=== PATIENT | male | born 1945 | race Caucasian/White ===

== ENCOUNTER → 2018-01-29 10:46 | Outpatient (CLI) | payer MEDICARE, OTHER, SELFPAY ==
--- NOTE | 2018-01-29 | DI.US.S_ITS ---
PROCEDURE: US CAROTID DOPPLER BI INDICATIONS: TIA TECHNIQUE: Color and pulse Doppler interrogation was performed of both carotid systems, with image documentation and velocity measurements. COMPARISON: None. FINDINGS: Stenosis calculations are based on SRU (Society of Radiologists in Ultrasound) criteria. Right side: Brachial blood pressure: 121/72 mm Hg. Common carotid artery peak systolic velocity: 104 cm/sec. Internal carotid artery peak systolic velocity: 74 cm/sec. Internal carotid artery end diastolic velocity: 22 cm/sec. External carotid artery peak systolic velocity: 116 cm/sec. ICA/CCA peak systolic ratio: 0.7 Howard scale imaging description: Normal appearance. Percent internal carotid artery stenosis: No stenosis.. Vertebral artery: Flow direction is antegrade. Left side: Brachial blood pressure: 125/73 mm Hg. Common carotid artery peak systolic velocity: 94 cm/sec. Internal carotid artery peak systolic velocity: 90 cm/sec. Internal carotid artery end diastolic velocity: 27 cm/sec. External carotid artery peak systolic velocity: 70 cm/sec. ICA/CCA peak systolic ratio: 1.0. Howard scale imaging description: Normal appearance. Percent internal carotid artery stenosis: No stenosis.. Vertebral artery: Flow direction is antegrade. IMPRESSION: No carotid stenosis. Dictated by: Chad Hanna [facility] Interpreted: Damaso Sanchez MD on 01/29/2018 at 12:51 Approved by: Damaso Sanchez M.D. on 01/29/2018 at 15:30
== END ==
PROVIDERS: Family Provider Family Medicine; PCP Family Medicine; Visit Provider Family Medicine
DX: G45.9 Transient cerebral ischemic attack, unspecified (principal)
CPT/HCPCS: 93880

== ENCOUNTER → 2020-11-26 09:05 | Outpatient (CLI) | payer MEDICARE, OTHER, SELFPAY ==
[2020-11-26 19:43] LABS: Alanine Aminotransferase 20 IU/L (<50); Albumin 3.9 g/dL (3.5-5.0); Albumin Globulin Ratio 1.8 (1.0-2.8); Alkaline Phosphatase 71 U/L (38-126); Aspartate Aminotransferase 35 IU/L (17-59); BUN Creatinine Ratio 16.7 (6-22); Bilirubin Total 0.9 mg/dL (0.2-1.3); Blood Urea Nitrogen 14 mg/dL (9-20); Calcium 9.2 mg/dL (8.4-10.2); Carbon Dioxide 29 mmol/L (22-32); Chloride 103 mmol/L (98-107); Cholesterol 178 mg/dL (140-199); Estimated Glomerular Filt Rate > 60.0 mL/min (>60); Globulin 2.2 g/dL (1.7-4.1); Glucose 93 mg/dL (80-110); HDL Cholesterol 63 mg/dL (40-60); HEMOLYSIS 17 (0-50); LDL Cholesterol Calculated 103 mg/dL (<100); Potassium 4.4 mmol/L (3.4-5.1); Sodium 138 mmol/L (137-145); Total Protein 6.1 g/dL (6.3-8.2); Triglycerides 60 mg/dL (35-150)
[2020-11-26 19:55] LABS: Add Manual Diff / Slide Review NO; Basophils Absolute Auto 0 /uL (0-100); Basophils Percent Auto 0.7 % (0-2); Eosinophils Absolute Auto 100 /uL (0-450); Eosinophils Percent Auto 2.2 % (2-4); Hematocrit 46.9 % (41-53); Hemoglobin 15.9 g/dL (13.5-17.5); Lymphocytes Absolute Auto 1300 /uL (1100-4500); Lymphocytes Percent Auto 24.8 % (25-40); Mean Corpuscular HGB Conc 33.9 % (30-36); Mean Corpuscular Hemoglobin 32.4 PG (26-34); Mean Corpuscular Volume 95.5 fL (80-100); Monocytes Absolute Auto 500 /uL (0-900); Monocytes Percent Auto 9.7 % (3-14); Neutrophils Absolute Auto 3200 /uL (1500-7000); Neutrophils Percent Auto 62.6 % (50-75); Platelet Count 181 X10^3/uL (150-400); Red Blood Cell Count 4.91 X10^6/uL (4.5-5.9); Red Cell Distribution Width 12.9 % (11.6-14.8); White Blood Cell Count 5.1 X10^3/uL (4.5-11.0)
== END ==
PROVIDERS: Family Provider Family Medicine; PCP Family Medicine; Visit Provider Family Medicine
DX: G45.3 Amaurosis fugax (principal); G45.9 Transient cerebral ischemic attack, unspecified; I48.91 Unspecified atrial fibrillation; I70.0 Atherosclerosis of aorta
CPT/HCPCS: 80053; 80061; 85025

== ENCOUNTER → 2021-07-04 13:03 | Outpatient (CLI) | payer MEDICARE, OTHER, SELFPAY ==
[2021-07-04 19:39] LABS: Alanine Aminotransferase 20 IU/L (<50); Albumin Globulin Ratio 1.7 (1.0-2.8); Alkaline Phosphatase 56 U/L (38-126); Aspartate Aminotransferase 34 IU/L (17-59); Blood Urea Nitrogen 16 mg/dL (9-20); Calcium 9.4 mg/dL (8.4-10.2); Carbon Dioxide 30 mmol/L (22-32); Chloride 105 mmol/L (98-107); Estimated Glomerular Filt Rate > 60.0 mL/min (>60); Globulin 2.3 g/dL (1.7-4.1); Glucose 89 mg/dL (80-110); HEMOLYSIS < 15 (0-50); Potassium 4.1 mmol/L (3.4-5.1); Sodium 137 mmol/L (137-145); Total Protein 6.3 g/dL (6.3-8.2)
[2021-07-04 20:05] LABS: Prostate Specific Antigen Scrn 1.91 ng/mL (0.1-4.0)
== END ==
PROVIDERS: Family Provider Family Medicine; PCP Family Medicine; Visit Provider Physician Assistant
DX: Z12.5 Encounter for screening for malignant neoplasm of prostate (principal); R25.2 Cramp and spasm
CPT/HCPCS: 80053; G0103

== ENCOUNTER → 2022-09-28 10:21 | Outpatient (CLI) | payer MEDICARE, OTHER, SELFPAY ==
[2022-09-28 20:16] LABS: Add Manual Diff / Slide Review NO; Basophils Absolute Auto 0 /uL (0-100); Basophils Percent Auto 0.7 % (0-2); Eosinophils Absolute Auto 100 /uL (0-450); Eosinophils Percent Auto 1.7 % (2-4); Hematocrit 44.6 % (41-53); Hemoglobin 15.6 g/dL (13.5-17.5); Lymphocytes Absolute Auto 1200 /uL (1100-4500); Lymphocytes Percent Auto 21.8 % (25-40); Mean Corpuscular Hemoglobin 32.8 PG (26-34); Mean Corpuscular Volume 93.9 fL (80-100); Monocytes Absolute Auto 600 /uL (0-900); Monocytes Percent Auto 10.5 % (3-14); Neutrophils Absolute Auto 3600 /uL (1500-7000); Neutrophils Percent Auto 65.3 % (50-75); Platelet Count 200 X10^3/uL (150-400); Red Blood Cell Count 4.75 X10^6/uL (4.5-5.9); Red Cell Distribution Width 12.7 % (11.6-14.8); White Blood Cell Count 5.6 X10^3/uL (4.5-11.0)
[2022-09-28 20:25] LABS: Alanine Aminotransferase 24 IU/L (<50); Albumin 3.9 g/dL (3.5-5.0); Albumin Globulin Ratio 1.7 (1.0-2.8); Alkaline Phosphatase 69 U/L (38-126); Aspartate Aminotransferase 36 IU/L (17-59); BUN Creatinine Ratio 18.5 (6-22); Bilirubin Total 0.8 mg/dL (0.2-1.3); Blood Urea Nitrogen 17 mg/dL (9-20); Calcium 8.8 mg/dL (8.4-10.2); Carbon Dioxide 29 mmol/L (22-32); Chloride 103 mmol/L (98-107); Cholesterol 174 mg/dL (140-199); Estimated Glomerular Filt Rate > 60 mL/min (>60); Globulin 2.3 g/dL (1.7-4.1); Glucose 88 mg/dL (80-110); HDL Cholesterol 67 mg/dL (40-60); HEMOLYSIS < 15 (0-50); LDL Cholesterol Calculated 95 mg/dL (<100); Potassium 4.3 mmol/L (3.4-5.1); Sodium 137 mmol/L (137-145); Total Protein 6.2 g/dL (6.3-8.2); Triglycerides 59 mg/dL (35-150)
[2022-09-28 20:49] LABS: Thyroid Stimulating Hormone 0.434 uIU/mL (0.47-4.68)
== END ==
PROVIDERS: Family Provider Family Medicine; PCP Physician Assistant; Visit Provider Family Medicine
DX: I48.91 Unspecified atrial fibrillation (principal); R25.2 Cramp and spasm; G45.9 Transient cerebral ischemic attack, unspecified; I70.0 Atherosclerosis of aorta
CPT/HCPCS: 80053; 80061; 84443; 85025

== ENCOUNTER → 2023-02-02 08:19 | Outpatient (CLI) | payer MEDICARE, OTHER, SELFPAY | PROVIDERS: Family Provider Family Medicine; PCP Physician Assistant Medical; Visit Provider Physician Assistant Medical | DX: T14.8XXA Other injury of unspecified body region, initial encounter (principal); W50.3XXA Accidental bite by another person, initial encounter; L60.0 Ingrowing nail | CPT/HCPCS: 87070; 87075; 87077; 87186; 87205 ==

== ENCOUNTER 2023-04-23 13:37 | Day surgery (SDC) | payer MEDICARE, OTHER, SELFPAY ==
--- NOTE | 2023-04-23 | PATH_ITS ---
[facility] Accession Number: [id number] No. of containers..02 Tissue . 01 Material submitted: . PART A: stomach - ANTRUM PART B: esophagus - DISTAL ESOPHAGUS . 01 Diagnosis: A. Stomach, Antrum, Biopsy: Antral mucosa with mild chronic gastritis. No evidence of Helicobacter organisms on H/E stain. Negative for intestinal metaplasia. Negative for dysplasia or malignancy. . B. 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 Negative for dysplasia and malignancy. [facility] 05/02/2023 1746 Local . 01 Electronically signed: . Fernanda Kendrick MD, Pathologist NPI- [id number] . 01 Gross description: . Part A: ANTRUM: Received in formalin is 1 fragment(s) of montano, soft tissue measuring 0.3 x 0.3 x 0.3 cm submitted entirely in 1 cassette(s) Part B: DISTAL ESOPHAGUS: Received in formalin are 2 fragment(s) of montano, soft tissue measuring 0.2 x 0.2 x 0.2 cm to 0.3 x 0.3 x 0.2 cm submitted entirely in 1 cassette(s) /MICK 04/24/2023 1909 Local . 01 Pathologist provided ICD-10: K22.70 . 01 CPT . 045510, [id number] Specimen Comment: A courtesy copy of this report has been sent to [phone] Performed at: 01 [facility] [address] [place] [address] [id number] MD Jaylen Giron MD Phone: [phone]
[2023-04-23] MEDS: LACTATED RINGERS 1,000 ML 42 ML IV (13:51)
[2023-04-23 13:59] VITALS: BP 142/85; PULSE 64; RESP 16; TEMP 36.3; O2SAT 95; BMI 23.5
--- NOTE | 2023-04-23 14:45 | PM.HP.1 ---
History of Present Illness History of Present Illness Date Patient Seen: 04/23/23 Time Patient Seen: 14:45 Chief complaint: EGD w/poss bx Narrative: 78-year-old male I recently saw this summer in GI clinic. Is chronic reflux and some intermittent symptoms of dysphagia. Here for EGD. He is off Plavix x5 days. [facility] Medical History Encounter for vitamin deficiency screening Screening for prostate cancer Screening for diabetes mellitus Screening for thyroid disorder Laceration without foreign body of left middle finger without damage to nail, initial encounter Screening for colon cancer Stroke Social History household members: spouse Smoking Status: Former smoker alcohol intake: current Meds Home Medications and Allergies Home Medications Medication Instructions Recorded Confirmed Type clopidogrel 75 mg tablet 75 mg PO DAILY #90 tabs 09/12/22 04/23/23 Rx mupirocin 2 % topical ointment 1 applic topical BID #22 grams 02/02/23 04/23/23 Rx baclofen 5 mg tablet 5 mg PO TID #60 tabs 04/19/23 04/23/23 Rx Allergies Allergy/AdvReac Type Severity Reaction Status Date / Time Penicillins [PENICILLINS] Allergy Intermediate hands Verified 04/23/23 13:55 swelled up Review of Systems Review of Systems ROS: Yes All systems reviewed with the patient and are negative except as otherwise documented Exam Vital Signs (past 8 hours): - 04/23/23 13:59 Temperature 97.4 F L Pulse Rate 64 Respiratory Rate 16 Blood Pressure 142/85 H Pulse Oximetry 95 Oxygen Delivery Method Room Air Oxygen Delivery Method Room Air Const General: cooperative HENMT Head: normal to inspection Eyes General: appearance normal, both eyes and all related structures Neck Neck: normal visual inspection Chest Chest: normal inspection of the chest Resp Effort & Inspection: normal respiratory effort Cardio Rate: regular rate GI Inspection: normal to inspection Skin General: no rashes or lesions noted Neuro General: patient alert and patient awake Extrem General: normal to inspection and no pedal edema Psych Appearance: grossly normal Assessment & Plan Assessment & Plan narrative: 78-year-old male with chronic reflux. He has a sense of early satiety at times intermittent low-grade dysphagia. Barretts screening by way of the EGD is pursued today. We touched on the unlikely possibility that dilatation would be called for and he agreed to proceed.
--- NOTE | 2023-04-23 14:47 | PM.PREOP ---
Pre-operative Note Interval Note History & Physical reviewed/Exam performed by Physician: Yes Changes to H&P: No ASA Class (for procedural sedation): II
--- NOTE | 2023-04-23 15:37 | P.OP.EGD_ITS ---
Operative Date/Time/Diagnoses Date of procedure: 04/23/23 Time of procedure: 15:37 Pre-op diagnosis: GERD and dysphagia Post-op diagnosis: same Procedure & Clinicians Study performed: EGD with biopsies Same procedure as scheduled: Yes Indications: GERD and dysphagia Surgeon: Gustavo Bowen Procedure Notes SCOAP/Timeout: Done Procedure in detail: After the risks and benefits were explained, written and verbal informed consent was obtained. The patient was brought into the procedure room and placed into the left lateral decubitus position. Please see anesthesia note for sedation details. The scope was introduced into the mouth through the bite block and advanced under direct visualization to the 2nd portion of the duodenum. The scope was slowly withdrawn carefully examining the mucosa for any defects or lesions. Retroflexed views were accomplished in the stomach. The stomach was decompressed, the scope was then removed from the patient who tolerated the procedure well. Sedation minutes: 9 Complications: none Impression: 1. Duodenum: There was some mild erythema that was essentially an extension of the gastropathy noticed in the antrum. This was in the bulb only. No ulcers no mass lesions. The 2nd portion of the duodenal appeared normal. 2. Stomach: Mild erythema was noted throughout the antrum. Biopsy was acquired for exclusion of H pylori infection. No ulcers no mass lesions no outlet obstruction. Retroflexed views of the LES disclosed sliding hiatal hernia and a few benign-appearing diminutive polyps in the fundus region. These were left alone. 3. Esophagus: The patient had evidence of LA grade C erosive esophagitis. The GE junction was at approximately 37 cm from the incisors. The diaphragmatic pinchcock was at about 42 cm from the incisors. The features of esophagitis extended up to about 32 cm from the incisors. It looked like there was perhaps C2 M4 Roper's. I took a couple of biopsies from the obvious salmon-colored mucosa in this location for histopathologic analysis. The remainder of the esophagus was fairly unremarkable. No distinct stricture or mass lesion. No nodularity within the Roper's segment. Endoscopic diagnosis 1. 5 cm hiatal hernia 2. LA grade C erosive esophagitis 3. Probable C2 M4 Barretts 4. Gastropathy Post-procedure Plan for aftercare: 1. Await histology. 2. Consider a more potent anti-reflux regimen to reduce distal esophageal acid exposure. Prescription for pantoprazole 40 mg once daily will be offered. 3. Repeat EGD in 8-12 weeks to confirm what is probably going to be Barretts diagnosis and ensure sufficient mucosal healing. 4. Okay to r esume Plavix starting tomorrow. Disposition: PACU
[2023-04-23 15:40] VITALS: BP 102/61; PULSE 64; RESP 17; TEMP 36.2; O2SAT 96
[2023-04-23 15:45] VITALS: BP 111/63; PULSE 63; RESP 16; O2SAT 96
[2023-04-23 15:50] VITALS: BP 117/71; PULSE 63; RESP 15; O2SAT 94
[2023-04-23 15:55] VITALS: BP 130/72; PULSE 60; RESP 17; TEMP 36.7; O2SAT 96
[2023-04-23 16:08] VITALS: BP 127/77; PULSE 60; RESP 16; TEMP 36.7; O2SAT 95
== END 2023-04-23 16:20 | disposition home or self-care (01) ==
PROVIDERS: Family Provider Family Medicine; PCP Physician Assistant Medical; Referring Provider Internal Medicine Gastroenterology; Visit Provider Internal Medicine Gastroenterology
PROC: 0DJ08ZZ Inspection of Upper Intestinal Tract, Via Natural or Artificial Opening Endoscopic (ICD-10-PCS; CPT 43235; principal; 2023-04-23 14:30)
DX: R13.10 Dysphagia, unspecified (principal); K31.9 Disease of stomach and duodenum, unspecified; K44.9 Diaphragmatic hernia without obstruction or gangrene; K21.00 Gastro-esophageal reflux disease with esophagitis, without bleeding; K29.50 Unspecified chronic gastritis without bleeding; K22.70 Barrett's esophagus without dysplasia
CPT/HCPCS: 43239; J2704

== ENCOUNTER → 2023-11-28 08:27 | Outpatient (CLI) | payer MEDICARE, OTHER, SELFPAY ==
[2023-11-28 21:04] LABS: Add Manual Diff / Slide Review NO; Basophils Absolute Auto 0 /uL (0-100); Basophils Percent Auto 0.4 % (0-2); Eosinophils Absolute Auto 200 /uL (0-450); Eosinophils Percent Auto 4.4 % (2-4); Hematocrit 44.9 % (41-53); Hemoglobin 15.5 g/dL (13.5-17.5); Lymphocytes Absolute Auto 1300 /uL (1100-4500); Lymphocytes Percent Auto 23.4 % (25-40); Mean Corpuscular HGB Conc 34.6 % (30-36); Mean Corpuscular Hemoglobin 32.5 PG (26-34); Mean Corpuscular Volume 93.8 fL (80-100); Monocytes Absolute Auto 700 /uL (0-900); Monocytes Percent Auto 12.5 % (3-14); Neutrophils Absolute Auto 3300 /uL (1500-7000); Neutrophils Percent Auto 59.3 % (50-75); Platelet Count 199 X10^3/uL (150-400); Red Blood Cell Count 4.79 X10^6/uL (4.5-5.9); Red Cell Distribution Width 12.9 % (11.6-14.8); White Blood Cell Count 5.6 X10^3/uL (4.5-11.0)
[2023-11-28 21:21] LABS: Alanine Aminotransferase 17 IU/L (<50); Albumin 4.2 g/dL (3.5-5.0); Albumin Globulin Ratio 1.8 (1.0-2.8); Aspartate Aminotransferase 34 IU/L (17-59); Calcium 9.2 mg/dL (8.4-10.2); Carbon Dioxide 28 mmol/L (22-32); Chloride 107 mmol/L (98-107); Cholesterol 184 mg/dL (140-199); Globulin 2.3 g/dL (1.7-4.1); Glucose 93 mg/dL (80-110); HDL Cholesterol 62 mg/dL (40-60); LDL Cholesterol Calculated 107 mg/dL (<100); Potassium 4.1 mmol/L (3.4-5.1); Sodium 138 mmol/L (137-145); Total Protein 6.5 g/dL (6.3-8.2); Triglycerides 76 mg/dL (35-150)
[2023-11-28 21:36] LABS: Alkaline Phosphatase 67 U/L (38-126); BUN Creatinine Ratio 18.6 (6-22); Bilirubin Total 1.1 mg/dL (0.2-1.3); Blood Urea Nitrogen 16 mg/dL (9-20); Estimated Glomerular Filt Rate > 60 mL/min (>60); HEMOLYSIS 19 (0-50)
[2023-11-28 21:45] LABS: TSH w/ Reflex to FT4 0.75 uIU/mL (0.47-4.68)
== END ==
PROVIDERS: Family Provider Family Medicine; PCP Physician Assistant Medical; Visit Provider Family Medicine
DX: I10 Essential (primary) hypertension (principal)
CPT/HCPCS: 80053; 80061; 84443; 85025

== ENCOUNTER 2024-01-16 14:34 | Emergency (ER) | payer MEDICARE, OTHER, SELFPAY ==
[2024-01-16 14:47] VITALS: BP 162/77; PULSE 79; RESP 17; TEMP 37.6; O2SAT 95; BMI 22.6
[2024-01-16 15:19] LABS: Strep Grp A by PCR Rapid Negative (Negative)
--- NOTE | 2024-01-16 15:25 | DI.RAD.S_ITS ---
PROCEDURE: XR CHEST 2V INDICATIONS: URI TECHNIQUE: 2 views of the chest were acquired. COMPARISON: None. FINDINGS: Surgical changes and devices: None. Lungs and pleura: Lungs are clear. No pleural effusions or pneumothorax. Mediastinum: Mediastinal contours are normal. Heart size is normal. Bones and chest wall: No suspicious bony abnormalities. Soft tissues appear unremarkable. IMPRESSION: No acute cardiopulmonary abnormality is seen. Dictated by: Patric Vann M.D. on 01/16/2024 at 16:21 Approved by: Patric Vann M.D. on 01/16/2024 at 16:21
--- NOTE | 2024-01-16 16:08 | ED.URI ---
HPI - URI/Sore Throat <Gris Peguero PA-C - Last Filed: 01/16/24 18:43> General Chief Complaint: Upper Respiratory Symptoms Stated Complaint: coughing, sore throat, sent by [employer] [place] Time Seen by Provider: 01/16/24 16:08 Source: patient Mode of arrival: Family Vehicle History of Present Illness HPI Narrative: 78-year-old male presents today with chief complaint of soreness of throat and some green mucus that he has been coughing up. He is denying any difficulty breathing, no fever at home that he is aware of but it is painful to swallow and his voice is somewhat raspy since Sunday. He also states trying to drink some orange juice today and ?choked and spit it back up. He has been able to take sips of clear liquids such as water. He also took his Plavix today as well. To the best of his knowledge he is vaccinated for all respiratory illnesses. No other members of his household have similar symptoms. No recent travel, no insect bites. He denies any rash, any history of airspace disease, no chest pain, as main complaint is painful swallowing with phlegm. He reports good control of his GERD with the pantoprazole. His history is significant for hypertension, GERD he has a follow-up EGD on February 04, 2024, atrial fibrillation previous TIA thus the Plavix and currently taking pantoprazole. He is allergic to penicillin. All other systems are reviewed and are negative. Related Data Home Medications Medication Instructions Recorded Confirmed pantoprazole 40 mg tablet,delayed 40 mg PO DAILY 11/26/23 02/04/24 release Previous Rx's Medication Instructions Recorded clopidogrel 75 mg tablet 75 mg PO DAILY #90 tabs 11/08/23 clindamycin HCl 300 mg capsule 300 mg PO Q8H #30 caps 01/16/24 Allergies Allergy/AdvReac Type Severity Reaction Status Date / Time Penicillins [PENICILLINS] Allergy Intermediate hands Verified 02/04/24 10:38 swelled up Review of Systems <Gris Peguero PA-C - Last Filed: 01/16/24 18:43> Review of Systems Narrative: All other systems reviewed and are negative. 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 Leg cramping Abnormal echocardiogram Atrial fibrillation Arteriosclerosis of thoracic aorta Amaurosis fugax of right eye Encounter for vitamin deficiency screening Screening for diabetes mellitus Screening for thyroid disorder Laceration without foreign body of left middle finger without damage to nail, initial encounter Screening for colon cancer Stroke Social History household members: spouse Smoking Status: Former smoker alcohol intake: current Smoking Status: Former smoker tobacco type: cigarettes alcohol intake frequency: holidays/special occasions only Substance Use Type: marijuana Exam <Gris Peguero PA-C - Last Filed: 01/16/24 18:43> Initial Vital Signs Initial Vital Signs: Vital Signs Temperature 99.7 F H 01/16/24 14:47 Pulse Rate 79 01/16/24 14:47 Respiratory Rate 17 01/16/24 14:47 Blood Pressure 162/77 H 01/16/24 14:47 Pulse Oximetry 95 01/16/24 14:47 Oxygen Delivery Method Room Air 01/16/24 14:47 Reviewed and are normal except for temperature which was rechecked at 100.1 but did respond to acetaminophen 650 mg. Slightly elevated systolic blood pressure reading today pulse oximetry on room air is 95%. Const Other: Smiling, seated, raspy sounding but no hot potato voice work of breathing is normal, no obvious distress, his legs are crossed. HENCA Head: normal to inspection, normocephalic and atraumatic Ears: hearing grossly normal bilaterally, external ears normal, TM's normal bilaterally, EAC's normal and mastoids normal Nose: external nose normal, nares normal and nasal mucous membranes and turbinates normal Face and sinus: normal facial exam, sinuses nontender and face symmetric Mouth: oral mucosae normal, lip normal, tongue normal, oropharynx normal, No drooling, No malodorous breath, No muffled voice and No thickened frenulum Teeth and gingiva: dentition normal and gingiva normal Throat: posterior oropharynx normal, tonsils normal, uvula midline and postnasal drainage HENMT Other: Tonsils are hardly visible bilaterally. There is no exudate, oral tissues are pink and moist. No lesions. No vesicles. Eyes Conjunctivae: conjunctivae normal Sclera: sclerae normal Neck Neck: normal visual inspection, full ROM, no meningeal signs, trachea midline, supple, No anterior neck swelling and No lymphadenopathy Lymphatic: No lymphadenopathy Other: Nontender examination of the lymph nodes, no focal bony midline tenderness in the posterior. No supra or infraclavicular nodes. Chest Other: Normal chest rise and fall, equal expansion. Resp Effort & Inspection: able to speak in complete sentences, no audible wheezes, no cough, not labored, no nasal flaring and symmetric chest movement Auscultation: clear to auscultation bilaterally, no crackles, lung sounds not diminished, no rales, no rhonchi and no wheezes Other: Phlegm in his throat which is distorting his voice it is slightly raspy, he is clearing his throat but his lungs are clear. Cardio Rate: regular rate Rhythm: regular rhythm Other: He states his atrial fibrillation was some time ago and it resolved without recurrence. GI Inspection: normal to inspection and non-distended Palpation: soft and no hepatosplenomegaly Back/Spine/Pelvis Other: No rash, warm to the touch. Skin General: no rashes or lesions noted <iTffanie Vázquez MD - Last Filed: 02/07/24 03:53> Initial Vital Signs Initial Vital Signs: Vital Signs Temperature 99.7 F H 01/16/24 14:47 Pulse Rate 79 01/16/24 14:47 Respiratory Rate 17 01/16/24 14:47 Blood Pressure 162/77 H 01/16/24 14:47 Pulse Oximetry 95 01/16/24 14:47 Oxygen Delivery Method Room Air 01/16/24 14:47 Course <Gris Peguero PA-C - Last Filed: 01/16/24 18:43> Course Course Narrative: Discussed the case with the attending Dr. Vázquez recommended IV steroids and antimicrobial to cover bacterial pharyngitis while his culture is pending. Was given Decadron 10 mg intravenously reassessed and he has had some significant improvement. He states he is able to swallow much better and has less phlegm. He did receive his 1st dose of clindamycin 300 mg by mouth as he is allergic to penicillin and it is after hours. This was well tolerated. He is able to drink liquids without difficulty now and his voice has actually improved. Orders Ordered: Discontinued Medications Acetaminophen (Acetaminophen 325 Mg Tablet) 650 mg PO NOW ONE Stop: 01/16/24 16:39 Last Admin: 01/16/24 16:56 Dose: 650 mg Documented By: KRYSTAL Clindamycin HCl (Clindamycin 150 Mg Capsule) 300 mg PO NOW ONE Stop: 01/16/24 17:25 Last Admin: 01/16/24 17:36 Dose: 300 mg Documented By: MARCELO Dexamethasone (Dexamethasone 10 Mg/Ml Vial) 10 mg IV NOW ONE Stop: 01/16/24 17:25 Last Admin: 01/16/24 17:36 Dose: 10 mg Documented By: MARCELO Vital Signs Vital signs: Vital Signs - 8 hr 01/16/24 14:47 01/16/24 16:27 01/16/24 16:56 Temperature 99.7 F H 101.1 F H 101.1 F H Pulse Rate 79 82 Respiratory Rate 17 20 Blood Pressure 162/77 H 164/75 H Pulse Oximetry 95 92 Oxygen Delivery Method Room Air Room Air Repeat oral temperature is 100.1?, he is dosed with acetaminophen 650 mg p.o.. <Tiffanie Vázquez MD - Last Filed: 02/07/24 03:53> Orders Ordered: Discontinued Medications Acetaminophen (Acetaminophen 325 Mg Tablet) 650 mg PO NOW ONE Stop: 01/16/24 16:39 Last Admin: 01/16/24 16:56 Dose: 650 mg Documented By: KRYSTAL Clindamycin HCl (Clindamycin 150 Mg Capsule) 300 mg PO NOW ONE Stop: 01/16/24 17:25 Last Admin: 01/16/24 17:36 Dose: 300 mg Documented By: MARCELO Dexamethasone (Dexamethasone 10 Mg/Ml Vial) 10 mg IV NOW ONE Stop: 01/16/24 17:25 Last Admin: 01/16/24 17:36 Dose: 10 mg Documented By: MARCELO Vital Signs Vital signs: Vital Signs - 8 hr 01/16/24 14:47 01/16/24 16:27 01/16/24 16:56 Temperature 99.7 F H 101.1 F H 101.1 F H Pulse Rate 79 82 Respiratory Rate 17 20 Blood Pressure 162/77 H 164/75 H Pulse Oximetry 95 92 Oxygen Delivery Method Room Air Room Air MDM - URI/Sore Throat <Gris Peguero PA-C - Last Filed: 01/16/24 18:43> Lab Data Lab results narrative: Acute respiratory panel is negative. Rapid strep screen was negative his backup throat culture is pending. CBC and chemistry are within normal limits slight white count of 11.7. Clayton screen is negative. 01/16/24 16:41 01/16/24 16:41 Labs: Lab Results 01/16/24 01/16/24 Range/Units 14:55 16:41 WBC 11.7 H (4.5-11.0) X10^3/uL RBC 4.80 (4.5-5.9) X10^6/uL Hgb 15.4 (13.5-17.5) g/dL Hct 45.4 (41-53) % MCV 94.4 (80-100) fL MCH 32.1 (26-34) PG MCHC 34.0 (30-36) % RDW 12.8 (11.6-14.8) % Plt Count 194 (150-400) X10^3/uL Neut % (Auto) 81.1 H (50-75) % Lymph % (Auto) 6.1 L (25-40) % Clayton % (Auto) 11.8 (3-14) % Eos % (Auto) 0.3 L (2-4) % Baso % (Auto) 0.7 (0-2) % Neut # (Auto) 9500 H (8970-1177) /uL Lymph # (Auto) 700 L (2361-4756) /uL Clayton # (Auto) 1400 H (0-900) /uL Eos # (Auto) 0 (0-450) /uL Baso # (Auto) 100 (0-100) /uL Sodium 136 L (137-145) mmol/L Potassium 3.9 (3.4-5.1) mmol/L Chloride 103 (98-107) mmol/L Carbon Dioxide 23 (22-32) mmol/L BUN 15 (9-20) mg/dL Creatinine 0.87 (0.66-1.25) mg/dL Estimated GFR > 60 (>60) mL/min BUN/Creatinine Ratio 17.2 (6-22) Glucose 103 (80-110) mg/dL Calcium 9.1 (8.4-10.2) mg/dL Total Bilirubin 1.6 H (0.2-1.3) mg/dL AST 32 (17-59) IU/L ALT 20 (<50) IU/L Alkaline Phosphatase 75 (38-126) U/L Total Protein 7.2 (6.3-8.2) g/dL Albumin 4.2 (3.5-5.0) g/dL Globulin 3.0 (1.7-4.1) g/dL Albumin/Globulin Ratio 1.4 (1.0-2.8) Chlamy pneumoniae PCR Not detected (Not Detect) Adenovirus (PCR) Not detected (Not Detect) B.parapertussis DNA PCR Not detected (Not Detecte) Coronavirus OC43 (PCR) Not detected (Not Detect) Coronavirus HKU1 (PCR) Not detected (Not Detect) Coronavirus 229E (PCR) Not detected (Not Detect) SARS-CoV-2 (PCR) Not detected (Not Detecte) Coronavirus NL63 (PCR) Not detected (Not Detect) Monoscreen Negative (Negative) Human Metapneumovir PCR Not detected (Not Detect) Influenza Type A (PCR) Not detected (Not Detect) Influenza Type B (PCR) Not detected (Not Detect) M. pneumoniae (PCR) Not detected (Not Detect) Parainfluenza 1 (PCR) Not detected (Not Detect) Parainfluenza 2 (PCR) Not detected (Not Detect) Parainfluenza 3 (PCR) Not detected (Not Detect) Parainfluenza 4 (PCR) Not detected (Not Detect) RSV (PCR) Not detected (Not Detect) Entero/Rhino (PCR) Not detected (Not Detect) Group A Strep (PCR) Negative (Negative) Imaging Data Chest x-ray: My Impression: Defer to radiologist's interpretation. Radiologist's Impression: PROCEDURE: XR CHEST 2V INDICATIONS: URI TECHNIQUE: 2 views of the chest were acquired. COMPARISON: None. FINDINGS: Surgical changes and devices: None. Lungs and pleura: Lungs are clear. No pleural effusions or pneumothorax. Mediastinum: Mediastinal contours are normal. Heart size is normal. Bones and chest wall: No suspicious bony abnormalities. Soft tissues appear unremarkable. IMPRESSION: No acute cardiopulmonary abnormality is seen. Dictated by: Patric Vann M.D. on 01/16/2024 at 16:21 Approved by: Patric Vann M.D. on 01/16/2024 at 16:21 [facility] Narrative Medical decision making narrative: My main concern is bacterial pharyngitis, his viral panel was negative. He has had significant improvement with the IV Decadron his throat culture is pending. Differential includes laryngitis, low likelihood of pharyngeal cellulitis there are no clinical findings on exam to suggest this, he does have a history of GERD that is certainly can contribute to some of his symptoms, his voice has improved with the steroids. <Tiffanie Vázquez MD - Last Filed: 02/07/24 03:53> Lab Data Labs: Lab Results 01/16/24 01/16/24 Range/Units 14:55 16:41 WBC 11.7 H (4.5-11.0) X10^3/uL RBC 4.80 (4.5-5.9) X10^6/uL Hgb 15.4 (13.5-17.5) g/dL Hct 45.4 (41-53) % MCV 94.4 (80-100) fL MCH 32.1 (26-34) PG MCHC 34.0 (30-36) % RDW 12.8 (11.6-14.8) % Plt Count 194 (150-400) X10^3/uL Neut % (Auto) 81.1 H (50-75) % Lymph % (Auto) 6.1 L (25-40) % Clayton % (Auto) 11.8 (3-14) % Eos % (Auto) 0.3 L (2-4) % Baso % (Auto) 0.7 (0-2) % Neut # (Auto) 9500 H (5879-6050) /uL Lymph # (Auto) 700 L (2427-1257) /uL Clayton # (Auto) 1400 H (0-900) /uL Eos # (Auto) 0 (0-450) /uL Baso # (Auto) 100 (0-100) /uL Sodium 136 L (137-145) mmol/L Potassium 3.9 (3.4-5.1) mmol/L Chloride 103 (98-107) mmol/L Carbon Dioxide 23 (22-32) mmol/L BUN 15 (9-20) mg/dL Creatinine 0.87 (0.66-1.25) mg/dL Estimated GFR > 60 (>60) mL/min BUN/Creatinine Ratio 17.2 (6-22) Glucose 103 (80-110) mg/dL Calcium 9.1 (8.4-10.2) mg/dL Total Bilirubin 1.6 H (0.2-1.3) mg/dL AST 32 (17-59) IU/L ALT 20 (<50) IU/L Alkaline Phosphatase 75 (38-126) U/L Total Protein 7.2 (6.3-8.2) g/dL Albumin 4.2 (3.5-5.0) g/dL Globulin 3.0 (1.7-4.1) g/dL Albumin/Globulin Ratio 1.4 (1.0-2.8) Chlamy pneumoniae PCR Not detected (Not Detect) Adenovirus (PCR) Not detected (Not Detect) B.parapertussis DNA PCR Not detected (Not Detecte) Coronavirus OC43 (PCR) Not detected (Not Detect) Coronavirus HKU1 (PCR) Not detected (Not Detect) Coronavirus 229E (PCR) Not detected (Not Detect) SARS-CoV-2 (PCR) Not detected (Not Detecte) Coronavirus NL63 (PCR) Not detected (Not Detect) Monoscreen Negative (Negative) Human Metapneumovir PCR Not detected (Not Detect) Influenza Type A (PCR) Not detected (Not Detect) Influenza Type B (PCR) Not detected (Not Detect) M. pneumoniae (PCR) Not detected (Not Detect) Parainfluenza 1 (PCR) Not detected (Not Detect) Parainfluenza 2 (PCR) Not detected (Not Detect) Parainfluenza 3 (PCR) Not detected (Not Detect) Parainfluenza 4 (PCR) Not detected (Not Detect) RSV (PCR) Not detected (Not Detect) Entero/Rhino (PCR) Not detected (Not Detect) Group A Strep (PCR) Negative (Negative) Discharge Plan Departure Patient Disposition: Home Clinical Impression: Acute bacterial pharyngitis Instructions: DI for Pharyngitis/Tonsillopharyngitis -- Adult Activity Restrictions/Additional Instructions: Please keep her activity light, try to push fluids, consider frozen popsicles or frozen Gatorade avoid heavy dairy or cream as this can thickened your phlegm, try steam therapy or a hot tea towel with steam or steamy shower, you have been given a dose of steroids tonight you will start prednisone steroids tomorrow by mouth along with the rest of your antibiotic course. You had your 1st dose of clindamycin tonight. Please seek medical attention immediately if you have any worsening symptoms, have difficulty swallowing or inability to swallow, any vomiting, any fever that does not respond to Tylenol, please do follow up with your primary care provider as well, your throat culture is pending and our lab and will take another 48 hours or so to finalize but you are being treated for presumed bacterial pharyngitis. Thank you again for your patients and coming in [facility] I hope you have a safe [place] ride home. To [facility]: If able, please accommodate for priority boarding. We do not provide/carry passes. Thank you in advance for your help and consideration. Prescriptions: New clindamycin HCl 300 mg capsule 300 mg PO Q8H Qty: 30 0RF No Action clopidogrel 75 mg tablet 75 mg PO DAILY Qty: 90 0RF pantoprazole 40 mg tablet,delayed release (DR/EC) 40 mg PO DAILY Referrals: Fernanda Del Cid PA-C [Primary Care Provider] - Stand Alone Forms: Patient Portal/API ED Sign-out <Tiffanie Vázquez MD - Last Filed: 02/07/24 03:53> Cosign ED Attending Heatherature Attestation: I was immediately available in the department for consultation throughout this patient's visit. Tiffanie Vázquez MD
[2024-01-16 16:23] LABS: Adenovirus Not Detected (Not Detect); B. parapertussis Not Detected (Not Detecte); Bordetella pertussis Not Detected (Not Detect); Chlamydophila pneumoniae Not Detected (Not Detect); Coronavirus 229E Not Detected (Not Detect); Coronavirus HKU1 Not Detected (Not Detect); Coronavirus NL 63 Not Detected (Not Detect); Coronavirus OC43 Not Detected (Not Detect); Human Metapneumovirus Not Detected (Not Detect); Human Rhinovirus/Enterovirus Not Detected (Not Detect); Influenza A Not Detected (Not Detect); Influenza B Not Detected (Not Detect); Mycoplasma pneumoniae Not Detected (Not Detect); Parainfluenza Virus 1 Not Detected (Not Detect); Parainfluenza Virus 2 Not Detected (Not Detect); Parainfluenza Virus 3 Not Detected (Not Detect); Parainfluenza Virus 4 Not Detected (Not Detect); Respiratory Syncytial Virus Not Detected (Not Detect); SARS- CoV-2 Not Detected (Not Detecte)
[2024-01-16 16:27] VITALS: BP 164/75; PULSE 82; RESP 20; TEMP 38.4; O2SAT 92
[2024-01-16 16:49] LABS: Add Manual Diff / Slide Review NO; Basophils Absolute Auto 100 /uL (0-100); Basophils Percent Auto 0.7 % (0-2); Eosinophils Absolute Auto 0 /uL (0-450); Eosinophils Percent Auto 0.3 % (2-4); Hematocrit 45.4 % (41-53); Hemoglobin 15.4 g/dL (13.5-17.5); Lymphocytes Absolute Auto 700 /uL (1100-4500); Lymphocytes Percent Auto 6.1 % (25-40); Mean Corpuscular Hemoglobin 32.1 PG (26-34); Mean Corpuscular Volume 94.4 fL (80-100); Monocytes Absolute Auto 1400 /uL (0-900); Monocytes Percent Auto 11.8 % (3-14); Neutrophils Absolute Auto 9500 /uL (1500-7000); Neutrophils Percent Auto 81.1 % (50-75); Platelet Count 194 X10^3/uL (150-400); Red Cell Distribution Width 12.8 % (11.6-14.8); White Blood Cell Count 11.7 X10^3/uL (4.5-11.0)
[2024-01-16 16:56] VITALS: TEMP 38.4
[2024-01-16] MEDS: ACETAMINOPHEN 325 MG TABLET 650 MG PO (16:56)
[2024-01-16 17:02] LABS: Alanine Aminotransferase 20 IU/L (<50); Albumin 4.2 g/dL (3.5-5.0); Albumin Globulin Ratio 1.4 (1.0-2.8); Alkaline Phosphatase 75 U/L (38-126); Aspartate Aminotransferase 32 IU/L (17-59); BUN Creatinine Ratio 17.2 (6-22); Bilirubin Total 1.6 mg/dL (0.2-1.3); Blood Urea Nitrogen 15 mg/dL (9-20); Calcium 9.1 mg/dL (8.4-10.2); Carbon Dioxide 23 mmol/L (22-32); Chloride 103 mmol/L (98-107); Estimated Glomerular Filt Rate > 60 mL/min (>60); Glucose 103 mg/dL (80-110); HEMOLYSIS < 15 (0-50); Potassium 3.9 mmol/L (3.4-5.1); Sodium 136 mmol/L (137-145); Total Protein 7.2 g/dL (6.3-8.2)
[2024-01-16 17:13] LABS: Monotest Negative (Negative)
[2024-01-16] MEDS: DEXAMETHASONE 10 MG/ML VIAL IV (17:36)
[2024-01-16] MEDS: CLINDAMYCIN 150 MG CAPSULE 300 MG PO (17:36)
[2024-01-16 18:35] VITALS: BP 138/69; PULSE 83; RESP 19; TEMP 36.9; O2SAT 94
[2024-01-16 18:42] VITALS: TEMP 36.9
--- NOTE | 2024-01-16 18:49 | PC.NURSE ---
IV removed; no complications
== END 2024-01-16 18:49 | disposition home or self-care (01) ==
PROVIDERS: Emergency Medicine; Emergency Provider Physician Assistant Medical; Family Provider Family Medicine; PCP Physician Assistant Medical
DX: J02.8 Acute pharyngitis due to other specified organisms (principal); Z11.52 Encounter for screening for COVID-19
CPT/HCPCS: 71046; 80053; 85025; 86318; 87081; 87147; 87633; 87651; 96374; 99284; J1100

== ENCOUNTER 2024-02-04 10:21 | Day surgery (SDC) | payer MEDICARE, OTHER, SELFPAY ==
--- NOTE | 2024-02-04 | PATH_ITS ---
[facility] Accession Number: [id number] No. of containers..02 Tissue . 01 Material submitted: . PART A: esophagus - DISTAL ESOPHAGUS PART B: gastrointestinal site - GASTRIC POLYPS . 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 No dysplasia identified. . Part B: GASTRIC POLYPS: Fundic gland polyps. No Helicobacter organisms identified on H/E stain. No intestinal metaplasia, dysplasia, or malignancy identified. [facility] 02/06/2024 1705 Local . 01 Electronically signed: . Jaylen Giron MD, Pathologist NPI- [id number] . 01 Gross description: . Part A: DISTAL ESOPHAGUS: Received in formalin are 3 fragment(s) of montano, soft tissue measuring 0.1 x 0.1 x 0.1 cm to 0.3 x 0.2 x 0.2 cm submitted entirely in 1 cassette(s) . Part B: GASTRIC POLYPS: Received in formalin are 2 fragment(s) of montano, soft tissue measuring 0.1 x 0.1 x 0.1 cm to 0.2 x 0.2 x 0.2 cm submitted entirely in 1 cassette(s) /MICK 02/06/2024 1705 Local . 01 Pathologist provided ICD-10: K22.70, K31.7 . 01 CPT . 516916, 475843 Specimen Comment: A courtesy copy of this report has been sent to [phone] Performed at: [address] [address], [place], [place] [id number] MD Jaylen Giron MD Phone: [phone]
[2024-02-04 10:40] VITALS: BP 145/78; PULSE 62; RESP 16; TEMP 36.4; O2SAT 95
[2024-02-04] MEDS: LACTATED RINGERS 1,000 ML 42 ML IV ×2 (10:54→12:08)
--- NOTE | 2024-02-04 11:08 | PM.HP.1 ---
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 He is office clopidogrel 6 days. He remains on pantoprazole apart from this morning. No additional changes with respect to my office visit note late. 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 Leg cramping Abnormal echocardiogram Atrial fibrillation Arteriosclerosis of thoracic aorta Amaurosis fugax of right eye Encounter for vitamin deficiency screening Screening for diabetes mellitus Screening for thyroid disorder Laceration without foreign body of left middle finger without damage to nail, initial encounter Screening for colon cancer Stroke Social History household members: spouse Smoking Status: Former smoker alcohol intake: current Meds Home Medications and Allergies Home Medications Medication Instructions Recorded Confirmed Type clopidogrel 75 mg tablet 75 mg PO DAILY #90 tabs 11/08/23 02/04/24 Rx pantoprazole 40 mg tablet,delayed 40 mg PO DAILY 11/26/23 02/04/24 History release clindamycin HCl 300 mg capsule 300 mg PO Q8H #30 caps 01/16/24 Rx Allergies Allergy/AdvReac Type Severity Reaction Status Date / Time Penicillins [PENICILLINS] Allergy Intermediate hands Verified 02/04/24 10:38 swelled up Review of Systems Review of Systems ROS: Yes All systems reviewed with the patient and are negative except as otherwise documented Exam Vital Signs (past 8 hours): - 02/04/24 10:40 Temperature 97.6 F Pulse Rate 62 Respiratory Rate 16 Blood Pressure 145/78 H Pulse Oximetry 95 Oxygen Delivery Method Room Air Oxygen Delivery Method Room Air Const General: cooperative HENMT Head: normal to inspection Eyes General: appearance normal, both eyes and all related structures Neck Neck: normal visual inspection Chest Chest: normal inspection of the chest Resp Effort & Inspection: normal respiratory effort Cardio Rate: regular rate GI Inspection: normal to inspection Skin General: no rashes or lesions noted Neuro General: patient alert and patient awake Extrem General: normal to inspection and no pedal edema Psych Appearance: grossly normal Assessment & Plan Assessment & Plan narrative: 79-year-old with esophagitis and Barretts here for EGD today. Time-Based Coding :: [TOTAL MINUTES] spent with patient and on the chart (including review of chart, obtaining history, exam, reviewing outside data, placing orders, documenting exam and treatment plan, and counseling patient) on [DATE].
--- NOTE | 2024-02-04 11:10 | PM.PREOP ---
Pre-operative Note Interval Note History & Physical reviewed/Exam performed by Physician: Yes Changes to H&P: No ASA Class (for procedural sedation): III
--- NOTE | 2024-02-04 12:00 | SUR.OPER ---
EGD SCOPE 043
--- NOTE | 2024-02-04 12:22 | P.OP.EGD_ITS ---
Operative Date/Time/Diagnoses Date of procedure: 02/04/24 Time of procedure: 12:22 Pre-op diagnosis: Esophagitis and Barretts Post-op diagnosis: same Procedure & Clinicians Study performed: EGD with biopsies Same procedure as scheduled: Yes Indications: Esophagitis and Barretts Surgeon: Gustavo Bowen Procedure Notes SCOAP/Timeout: Done Procedure in detail: After the risks and benefits were explained, written and verbal informed consent was obtained. The patient was brought into the procedure room and placed into the left lateral decubitus position. Please see anesthesia note for sedation details. The scope was introduced into the mouth through the bite block and advanced under direct visualization to the 2nd portion of the duodenum. The scope was slowly withdrawn carefully examining the mucosa for any defects or lesions. Retroflexed views were accomplished in the stomach. The stomach was decompressed, the scope was then removed from the patient who tolerated the procedure well. Sedation minutes: 12 Complications: none Impression: 1. Duodenal: This was visually normal from the bulb through to the 2nd portion. 2. Stomach: No gastric outlet obstruction no ulcers no mass lesions. Retroflexed views of the LES disclosed hiatal hernia with a Hill valve grade 4. There were several diminutive scattered benign-appearing polyps. A couple of these were removed with cold forceps for a sales representative girls' apparel sample from the gastric body. 3. Esophagus: The GE junction was at approximately 33 cm from the incisors and the top margin of the Barretts appeared to be at about 31 cm from the incisors. There was no evidence of any active inflammation no ulceration nor nodularity. This represents a C 0.5 M2 segment of Barretts. Biopsies from the salmon- colored mucosa were acquired and submitted for histopathology. The distal esophagus leading into the hiatal hernia sac was moderately tortuous. Endoscopic diagnosis 1. Hiatal hernia 2. Tortuous distal esophagus 3. Healed esophagitis 4. Diminutive gastric polyps 5. 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 Await histology 2. Continue pantoprazole 3. Okay to restart clopidogrel tomorrow. Disposition: PACU
[2024-02-04 12:25] VITALS: BP 107/68; PULSE 60; RESP 14; TEMP 36.3; O2SAT 94
[2024-02-04 12:30] VITALS: BP 109/70; PULSE 56; RESP 16; O2SAT 94
[2024-02-04 12:35] VITALS: BP 111/72; PULSE 54; RESP 14; O2SAT 94
[2024-02-04 12:41] VITALS: BP 121/81; PULSE 66; RESP 18; TEMP 36.9; O2SAT 96
== END 2024-02-04 12:55 | disposition home or self-care (01) ==
PROVIDERS: Family Provider Family Medicine; Referring Provider Internal Medicine Gastroenterology; Visit Provider Internal Medicine Gastroenterology
PROC: 0DJ08ZZ Inspection of Upper Intestinal Tract, Via Natural or Artificial Opening Endoscopic (ICD-10-PCS; CPT 43235; principal; 2024-02-04 11:30)
DX: K22.70 Barrett's esophagus without dysplasia (principal); K31.7 Polyp of stomach and duodenum; K44.9 Diaphragmatic hernia without obstruction or gangrene; Z87.19 Personal history of other diseases of the digestive system
CPT/HCPCS: 43239; J2704

== ENCOUNTER → 2024-11-25 09:02 | Outpatient (CLI) | payer MEDICARE, OTHER, SELFPAY ==
[2024-11-25 19:20] LABS: Add Manual Diff / Slide Review NO; Hematocrit 43.1 % (41-53); Hemoglobin 15.0 g/dL (13.5-17.5); Lymphocytes Absolute Auto 1100 /uL (1100-4500); Mean Corpuscular HGB Conc 34.9 % (30-36); Mean Corpuscular Hemoglobin 33.0 PG (26-34); Mean Corpuscular Volume 94.6 fL (80-100); Platelet Count 194 X10^3/uL (150-400)
[2024-11-25 19:27] LABS: Alanine Aminotransferase 18 IU/L (<50); Albumin 4.2 g/dL (3.5-5.0); Albumin Globulin Ratio 1.9 (1.0-2.8); Alkaline Phosphatase 65 U/L (38-126); Blood Urea Nitrogen 18 mg/dL (9-20); Calcium 9.1 mg/dL (8.4-10.2); Carbon Dioxide 28 mmol/L (22-32); Chloride 104 mmol/L (98-107); Cholesterol 180 mg/dL (140-199); Estimated Glomerular Filt Rate > 60 mL/min (>60); Globulin 2.2 g/dL (1.7-4.1); Glucose 90 mg/dL (70-99); HDL Cholesterol 65 mg/dL (40-60); HEMOLYSIS < 15 (0-50); Potassium 4.0 mmol/L (3.4-5.1); Sodium 138 mmol/L (137-145); Total Protein 6.4 g/dL (6.3-8.2); Triglycerides 78 mg/dL (35-150)
[2024-11-25 19:52] LABS: Thyroid Stimulating Hormone 0.540 uIU/mL (0.47-4.68)
== END ==
PROVIDERS: Family Provider Family Medicine; PCP Family Medicine; Visit Provider Family Medicine
DX: Z12.5 Encounter for screening for malignant neoplasm of prostate (principal); I10 Essential (primary) hypertension; I48.91 Unspecified atrial fibrillation; G45.9 Transient cerebral ischemic attack, unspecified
CPT/HCPCS: 80053; 80061; 84443; 85025; G0103